=== PATIENT | male | born 1930 | race Caucasian/White ===

== ENCOUNTER 2017-03-14 16:07 | Outpatient (CLI) | payer MEDICARE, OTHER | END 2017-03-14 16:08 | disposition critical access hospital (66) | LOC: EMS 16:07 | PROVIDERS: ATTEND Surgery | DX: M25.532 Pain in left wrist (principal); R51 Headache; R55 Syncope and collapse; W18.11XA Fall from or off toilet without subsequent striking against object, initial encounter; Y93.E8 Activity, other personal hygiene; Y92.031 Bathroom in apartment as the place of occurrence of the external cause | CPT/HCPCS: A0425; A0429 ==

== ENCOUNTER 2017-03-14 16:22 | Emergency (ER) | payer MEDICARE, OTHER | END 2017-03-14 18:20 | disposition home or self-care (01) | DX: R55 Syncope and collapse (principal); S51.811A Laceration without foreign body of right forearm, initial encounter; W18.12XA Fall from or off toilet with subsequent striking against object, initial encounter; Y93.E8 Activity, other personal hygiene; I10 Essential (primary) hypertension; F03.90 Unspecified dementia, unspecified severity, without behavioral disturbance, psychotic disturbance, mood disturbance, and anxiety; Z66 Do not resuscitate ==